=== PATIENT | female | born 1970 | race Caucasian/White ===

== ENCOUNTER 2016-07-11 22:15 | Emergency (ER) | payer BC, MEDICARE ==
--- NOTE | ~2016-07-11 | ER ---
PATIENT'S NAME: YOLANDA GABRIEL [facility] AGE: 45 Y [address] ROOM: [place] [address] LOCATION: [facility] ADMIT DATE: 07/11/2016 ER/Outpatient Report DISCHARGE DATE: 07/12/2016 FAMILY PHYSICIAN: Rakesh Zurita MD ATTENDING PHYSICIAN: Leida Hernandez Time of Arrival: 2215 hours. Time of Evaluation: 2245 hours. IDENTIFICATION: A 45-year-old female. CHIEF COMPLAINT: Bladder spasms and catheter problems. HISTORY OF PRESENT ILLNESS: The patient is a 45-year-old female with a C6-C7 spinal injury and is quadriplegic. She has autonomic hyperreflexia. She has been having bladder issues that trigger her autonomic hyperreflexia and has been leaking around her suprapubic catheter and feels that it needs to be changed. She also just has not been feeling well and her urine has been a little cloudy. She is crampy all over and she feels that maybe she does have a urinary tract infection as well. No other problems or concerns. PAST MEDICAL HISTORY: ALLERGIES: PENICILLIN AND KEFLEX. CURRENT MEDICATIONS: 1. Librax 5/2.5 b.i.d. 2. Oxybutynin 5 mg b.i.d. 3. Hyoscyamine 0.125 mg sublingual p.r.n. 4. Diazepam 5 mg p.r.n. 5. Cranberry 500 mg daily. 6. Reclast 1 time per year. 7. Citalopram 30 mg daily. 8. She said she uses nitroglycerin paste p.r.n. for episodes of hyperreflexia. PRIOR SURGERIES: Hysterectomy, suprapubic catheter and cholecystectomy. SOCIAL HISTORY: The patient lives here in [place]. She is . Tobacco use, denies. PATIENT'S NAME: YOLANDA GABRIEL [facility] AGE: 45 Y [address] ROOM: [place] [address] LOCATION: [facility] ADMIT DATE: 07/11/2016 ER/Outpatient Report DISCHARGE DATE: 07/12/2016 FAMILY PHYSICIAN: Rakesh Zurita MD ATTENDING PHYSICIAN: Leida Hernandez Alcohol use, denies. Drug use, denies. REVIEW OF SYSTEMS: All systems reviewed and negative other than what is noted in the HPI. PHYSICAL EXAMINATION: VITAL SIGNS: Pulse 93, respirations 20, temperature 99, blood pressure 104/49, and saturations 97% on room air. GENERAL: A pleasant female, in no acute distress. HEENT: Head: Normocephalic, atraumatic. Eyes: Pupils equal and reactive to light and accommodation. Extraocular movements intact. Nose: Mucosa pink. No lesions. Mouth: No lesions. Pharynx benign. NECK: Supple. No lymphadenopathy. LUNGS: Clear to auscultation. HEART: Regular rate and rhythm. ABDOMEN: Soft, nondistended, nontender. SKIN: [place], warm, and dry. EMERGENCY ROOM COURSE: Suprapubic catheter is in place. We discussed changing it and she would like to proceed with having it changed. The present suprapubic catheter was removed. The area was prepped with Betadine and a replacement catheter 24- Sami suprapubic tube was replaced and she had good urine output. While exchanging it, felt flushed and a headache. Blood pressure did elevate transiently, but very quickly came back down. Catheter continued to drain nicely. UA showed 50 to 100 white cells, full field of red cells. Culture was obtained. IMPRESSION: 1. Suprapubic catheter with bladder spasms and drainage problems, replaced here in the ER. 2. Urinary tract infection. 3. Autonomic hyperreflexia. PLAN: Cipro 250 mg b.i.d. for 3 days. Routine catheter cares and follow up with Dr. Golden and Dr. Zurita as needed. The patient understands and agrees, and all questions have been answered. Vital signs on discharge; blood pressure 111/70, pulse 80, temperature 97.8 and pain had improved from the 5 to 2. LEIDA HERNANDEZ MD PATIENT'S NAME: YOLANDA GABRIEL [facility] AGE: 45 Y [address] ROOM: [place], [place] [address] LOCATION: [facility] ADMIT DATE: 07/11/2016 ER/Outpatient Report DISCHARGE DATE: 07/12/2016 FAMILY PHYSICIAN: Rakesh Zurita MD ATTENDING PHYSICIAN: Leida Hernandez/juan miguell /[id number] d: 07/12/16641 t: 07/22/16619, OUTPATIENT REPORT
[~2016-07-11 22:15] MED LIST: CRANBERRY500 M3 PO; DITROPAN5 MG PO; DPS FOR LIBRAX1 CAP PO; LEVSIN-SL0.125 MG PO; OXYCODONE HCL5 MG PO; VALIUM5 MG PO; WOMEN'S DAILY1 EAC3 PO
[2016-07-12 00:11] LABS: BILIRUBIN URINE NEGATIVE (NEGATIVE); BLOOD URINE 250 /UL (NEGATIVE); GLUCOSE URINE NEGATIVE (NEGATIVE); KETONE URINE NEGATIVE (NEGATIVE); LEUKOCYTES URINE 500 /UL (NEGATIVE); NITRITE URINE POSITIVE (NEGATIVE); PROTEIN URINE 500 mg/dL (NEGATIVE); SPEC GRAVITY URINE 1.015 (1.003-1.035); UROBILINOGEN URINE NORMAL (NORMAL)
[2016-07-12 00:16] LABS: COLOR URINE YELLOW (YELLOW); TURBIDITY URINE 3+ (CLEAR)
[2016-07-12 00:20] LABS: BACTERIA URINE MANY (NEGATIVE); RBC URINE FULL FIELD #/HPF (NEGATIVE); WBC URINE 50-100 #/HPF (NEGATIVE)
== END 2016-07-12 00:40 | disposition disaster alternative care site (69) ==
LOC: GMED 22:15
PROVIDERS: Family Medicine
PROC: 0T2BX0Z Change Drainage Device in Bladder, External Approach (ICD-10-PCS; principal; 2016-07-11)
DX: T83.510A Infection and inflammatory reaction due to cystostomy catheter, initial encounter (principal); N39.0 Urinary tract infection, site not specified; R29.2 Abnormal reflex; Z88.0 Allergy status to penicillin; Z88.1 Allergy status to other antibiotic agents; Z90.710 Acquired absence of both cervix and uterus; Z90.49 Acquired absence of other specified parts of digestive tract